=== PATIENT | female | born 1970 | race Caucasian/White ===

== ENCOUNTER 2016-12-17 10:20 | Emergency (ER) | payer OTHER ==
[2016-12-17] MEDS ORDERED: DILAUDID IM ONE (10:54)
--- NOTE | 2016-12-17 11:06 | PROVIDER DOCUMENTATION ---
HPI-Musculoskeletal Pain/Inj - GENERAL Chief Complaint: Extremity Injury Stated Complaint: LEG INJURY Time Seen by Provider: 12/17/16 10:43 Source: patient - HX OF PRESENT ILLNESS-MUSKULOSKELTAL Nature of Presenting Problem: 46 y/o WF c/o left lower extremity pain after she was jumping off a trunk last night, left leg was stuck in a hole when she landed and the left knee twisted and she heard a pop. since then, has not been able to bare weight on the extremity. Denies hitting head, loc, pain in other locations or other injuries. This occurred approx 20;00 last night. Denies numbness or tingling in the foot, skin discoloration. No pre-arrival treatment Review of Systems - Adult - REVIEW OF SYSTEMS - ADULT Constitutional: reports: no symptoms reported. denies: chills, fever, fatique Eyes: reports: no symptoms reported. denies: decreased vision, double vision, eye pain Ears, Nose, Mouth & Throat: reports: no symptoms reported. denies: ear pain, nose pain, throat pain Cardiovascular: reports: no symptoms reported. denies: chest pain Respiratory: reports: no symptoms reported. denies: cough, shortness of breath Gastrointestinal: reports: no symptoms reported. denies: abdominal pain Genitourinary: reports: no symptoms reported. denies: dysuria, discharge, frequency Musculoskeletal: reports: see HPI, bone pain, joint pain, joint swelling. denies: back pain, muscle aches Integumentary: reports: no symptoms reported. denies: rash Neurological: reports: no symptoms reported. denies: dizziness/vertigo, headache/migraines Psychiatric: reports: no symptoms reported Endocrine: reports: no symptoms reported Hematologic/Lymphatic: reports: no symptoms reported Allergic/Immunologic: reports: no symptoms reported All Other Systems: Reviewed and Negative Past History - Adult - PAST MEDICAL HISTORY-ADULT Review of Records: reports: Old Records Reviewed, Nursing Assessment Review, Medications Reviewed Major Childhood Illnesses: reports: denies history Cardiovascular: reports: denies history Respiratory: reports: denies history Gastrointestinal: reports: denies history Obstetrical/Gynecological: reports: denies history Genitourinary: reports: denies history Musculoskeletal: reports: denies history Neurological: reports: denies history Endocrine/Immune: reports: denies history Other Conditions: reports: denies history - IMMUNIZATION STATUS Childhood Immunizations: See Nurse Assessment Flu Vaccine: See Nurse Assessment - FAMILY HISTORY Family History: reviewed, not pertinent - SOCIAL HISTORY Smoking: less than 1 pack/day Provider spent 3-5 mins advising pt. on dangers of tobacco.: Discussed manners to quit use, and f/u contacts for add'l counseling. Substance Use: none/never Alcohol Use Frequency: never Living Situation: family Physical Exam-Injury Related - Physical Exam-Injury Related Initial Vital Signs Reviewed: Yes General Appearance: appears well, alert, mild distress Eyes: PERRL/EOMI, pink conjunctivae Head, Ears, Nose, Mouth & Throat: normocephalic/atraumatic, moist mucous membranes, normal ENT inspection Neck: non-tender, full range of motion, supple, normal inspection Respiratory: chest non-tender, lungs clear, normal breath sounds, no pleuratic chest pain, no respiratory distress, no accessory muscle use. negative: respiratory distress, decreased breath sounds, accessory muscle use, crackles, rales, rhonchi, stridor, wheezing Cardiovascular: normal peripheral pulses, regular rate, rhythm Peripheral Pulses: dorsalis-pedis (R): 2+, dorsalis-pedis (L): 2+ Extremity: other (left knee, dec rom secondary to pain, swelling over the antromedial aspect of the knee. Pulses 2+ equal and bilaterally of the dorsalis pedis, full rom and non tender in the ankle, foot and digits of the lower extremities.) Integumentary: normal color, warm/dry, blanching Neurologic: grossly normal, no motor/sensory deficits Psych/Mental Status: normal mood/affect, normal thought process - Glascow Coma Score Best Eye Response ([place]): (4) open spontaneously Best Verbal Response (Jorge): (5) oriented Best Motor Response (Jorge): (6) obeys commands Progress - PLAN OF CARE/RESULTS Progress/Plan/Lab Results: Vital Signs Temp Pulse Resp BP Pulse Ox 12/17/16 10:25 98 F 98 H 18 118/81 97 codeine Adverse Reaction (Verified 12/17/16 10:31) NAUSEA Venlafaxine E.r. [Effexor Xr] 75 mg PO DAILY 12/17/16 Orders Category Date Time Status Crutches DIRECTED Care 12/17/16 11:01 Active Knee Immobilizer .left Care 12/17/16 11:01 Active LOWER LEG-LEFT [RAD] Stat Exams 12/17/16 10:31 Draft Hydromorphone [Dilaudid] Med 12/17/16 10:54 Discontinued 1 mg IM NOW ONE Discussed patient with Dr. Scherer who is contacting the trauma surgeon at [facility]. - XRAY 1 XRAY: Left XRAY Study: Knee Impression: Abnormal (tibiabl plateau fracture with depression per Dr. Martinez, [facility]) - CONSULTS/PCP/HOSPITALIST Notification #1 *Consult/PCP/Hospitalist*: Dr. Tavares, orthopedic Time Discussed: 11:21 Reason/Comments: depressed tibial plateau fx Consult Disposition: other (contact trauma ortho and see if they want in patient or outpatient treatment) #2 Consult: Dr. Baldwin, ortho trauma Time Discussed: 11:49 Reason/Comments: tibeal plateau fx Consult Disposition: other (transfer to [place]) Departure - Departure Time of Disposition Order: 11:49 DIAGNOSIS: Tibial plateau fracture, left Qualifiers: Encounter type: initial encounter Fracture type: closed Qualified Code(s): S82.142A - Displaced bicondylar fracture of left tibia, initial encounter for closed fracture Disposition: [facility] 02 Certified Medical Emergency: Emergent Condition: Stable Attestation - Physician/ JENARO Attestation Patient care was provided by Advanced Practice Provider:: Yes Advanced Practice Provider:: Kayla Fuentes Advanced Practice Provider documentation review:: The Mid-level provider documentation, treatment plan and medical decision making was reviewed by the physician who agrees with all treatment and medical decision making by the MLP. The physician spent face to face time with patient:: Yes Advanced Practice Provider documentation review:: The physician spent face to face time with this patient and agrees with all MLP documentation, treatment, and medical decision making by the MLP. See provider notes for further information.
--- NOTE | 2016-12-17 11:15 | Diag Imaging Result Document ---
PROCEDURE NAME: LOWER LEG-LEFT - 12/17/2016 RIGHT TIBIA FIBULA, TWO VIEWS: FINDINGS: There is a depressed fracture to the tibial plateau. The lateral tibia plateau is depressed more than the medial tibial plateau. No fracture at the ankle. Neither shaft is fractured. Possible small fragment arising form the proximal fibula. IMPRESSION: Tibial plateau fracture. MTDD
[2016-12-17 12:25] VITALS: BP 103/067
== END 2016-12-17 12:26 | disposition short-term general hospital (02) ==
LOC: P.ED 10:20
DX: S82.142A Displaced bicondylar fracture of left tibia, initial encounter for closed fracture (principal); M25.562 Pain in left knee; M25.462 Effusion, left knee; F17.210 Nicotine dependence, cigarettes, uncomplicated; Z79.899 Other long term (current) drug therapy; Z71.6 Tobacco abuse counseling
CPT/HCPCS: J1170